=== PATIENT | female | born 1990 | race American Indian/Alaskan Native ===

== ENCOUNTER 2018-09-28 23:10 | Inpatient (IN) | payer OTHER ==
[2018-09-29] MEDS ORDERED: Acetaminophen 325 MG Tab PO PRN ×2 (00:05→11:14)
[2018-09-29] MEDS ORDERED: Misoprostol 400 MCG (4 X 100 MCG TAB) RECTAL PRN ×3 (00:05→11:28)
[2018-09-29] MEDS ORDERED: Lidocaine 1% 30 ML SDV INJECT PRN (00:05)
[2018-09-29] MEDS ORDERED: fentaNYL 100 MCG/2 ML SDV IVPUSH PRN (00:05)
[2018-09-29] MEDS ORDERED: Lactated Ringers 500 ML IV ONE (00:05)
[2018-09-29] MEDS ORDERED: Carboprost Tromethamine 250 MCG/1 ML Amp IM PRN ×3 (00:05→11:28)
[2018-09-29] MEDS ORDERED: Sodium Chloride 0.9% 10 ML Syringe FLUSH PRN ×3 (00:05→11:28)
[2018-09-29] MEDS ORDERED: Methylergonovine 0.2 MG/1 ML Amp IM PRN (00:05)
[2018-09-29] MEDS ORDERED: Tranexamic Acid 1,000 MG in Sodium Chloride 0.9% 100 ML IV PRN ×3 (00:05→11:28)
[2018-09-29] MEDS ORDERED: Oxytocin/Normal Saline 30 UNIT/500 ML BAG IV SCH (00:15)
[2018-09-29] MEDS: Lactated Ringers 1,000 ML IV SCH ×2 (02:53→09:54)
--- NOTE | 2018-09-29 04:18 | HP ---
CHIEF COMPLAINT: Labor. HISTORY OF PRESENT ILLNESS: A 28-year-old, 5, para 4-0-0-4, currently at 38 and 3/7th weeks' gestation based on last menstrual period and consistent with 20-week ultrasound. The patient presenting on late evening of 09/28/2018, reporting increased force and frequency of contractions this evening. No leakage of fluid or vaginal bleeding. movement has been good. No symptoms of preeclampsia and denies other acute concerns. The patient and her made it to the hospital early as she does have a history of precipitous deliveries. OBSTETRICAL HISTORY: 1. 02/2008, 40 weeks' gestation, vaginal delivery, female infant weighing 3402 kg. The patient was induced on her due date by Dr. Szymanski. Delivery was vaginal without complications. 2. 06/09/2010, at 39 and 2/7th weeks' gestation, female weighing 3487 g, precipitous delivery after intrathecal was given at 6 cm to 7 cm. The patient was delivered by Lia blunt for Dr. Szymanski. 3. 02/21/2012, 39 weeks 4 days' gestation, spontaneous vaginal delivery, female infant weighing 3147 g. Also delivered by Lia blunt again for Dr. Szymanski. 4. 02/06/2016, 38 weeks and 0 days gestation, spontaneous vaginal delivery, female weighing 3855 g, delivered by Dr. Weaver without complications. LABS: Blood type O positive. Antibody screen negative. Rubella immune. Syphilis serology is nonreactive. Urine culture was greater than 100,000 of E coli. Hepatitis B negative. HIV negative. Gonorrhea chlamydia negative. Thyroid test normal. Hepatitis C negative. Wet prep negative. One- hour glucose tolerance test of 153, 3-hour test was normal with a fasting of 82, 1 hour 131, 2 hours 90, and 3 hours of 93. Group B strep test is negative. Last hemoglobin in the office was 9.9 and she does have anemia of . PAST MEDICAL HISTORY: Abnormal Pap smear HSIL in 04/2010, which returned to normal without any treatment, boxer's fracture in 2004, chlamydia infection in June 2015, depression, history of chickenpox. She has also had some tattoos and ear piercings, history of nonrecurrent UTIs. PAST SURGICAL HISTORY: None. FAMILY HISTORY: Mother, living with thyroid disease. Father, living with diabetes. She has 1 sister and 5 brothers, 1 of whom was in a car accident because he was texting while driving. Maternal grandmother with lymph node cancer. Maternal grandfather , no known diseases. Paternal grandmother with diabetes. Paternal grandfather is . There is no family history of any defects, anesthesia problems, bleeding problems, multiple births, seizures, cystic fibrosis, or clotting disorders. SOCIAL HISTORY: The patient has never smoked. She is , living in [place] and working at the [employer]. 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 MEDICATIONS: vitamin 1 daily. Iron prescribed twice daily, but she is only taking it once daily because of constipation. Colace 100 mg twice daily for constipation. ALLERGIES: Augmentin causes rash with hives. REVIEW OF SYSTEMS: As listed above in the history of present illness. No difficulties with headaches, blurry vision, chest pain, shortness of breath, fever, chills, nausea, vomiting, or diarrhea. She does have some ongoing constipation, made worse by the iron. PHYSICAL EXAMINATION: VITAL SIGNS: Blood pressure 132/71, pulse of 83, respiratory rate of 18. HEENT: Grossly unremarkable. NECK: Supple without adenopathy. HEART: Regular without murmur. LUNGS: Clear to auscultation bilaterally. ABDOMEN: Soft and nontender. Appropriate fundal height. NST is category 1 with baseline heart rate of 120 beats per minute. Contractions initially every 4 minutes, currently every 2, cervix 3 cm, 75%. EXTREMITIES: No edema, erythema, or tenderness noted. LABORATORY DATA: Hemoglobin is 9.8, platelets are 391. ASSESSMENT: 1. A 38 and 3/7th weeks' intrauterine . 2. 5, para 4-0-0-4. 3. Blood type, O positive. Rubella immune. Group B strep negative. 4. History of precipitous deliveries. 5. History of depression. 6. Anemia of . PLAN: The patient will get settled into a delivery room. We will anticipate artificial rupture of membranes followed later by intrathecal when appropriate and patient usually dilates readily thereafter, so will be expecting a vaginal delivery. The patient understands at any time the course of treatment may change, pending clinical course, and any concerns that may arise for mom and/or baby. Her questions were answered. [facility] /[id number]
[2018-09-29] MEDS ORDERED: fentaNYL 100 MCG/2 ML SDV ONE ×2 (05:08→09:37)
[2018-09-29] MEDS ORDERED: EPINEPHrine 1 MG/ML SDV ONE ×2 (05:09→09:37)
--- NOTE | 2018-09-29 05:43 | PCM.PRNOTE ---
- Free Text/Narrative Note: Requested to provide analgesia to full term patient in severe pain. Upon entering the room, patient is sitting on edge of bed complaining of severe abdominal/pelvic pain and discomfort. Procedure was discussed with patient including adverse outcomes and expectations. Pt consented to analgesia, SAB/ IT. Pt placed into a proper sitting position. Landmarks for SAB/IT were identified and marked. Hands were washed and appropriate PPE was applied. Back was prepped with betadine x3. A sterile, transparent, fenestrated drape was applied. Excess betadine was removed. Using 3 mL of a 1% lidocaine solution , a skin wheel was placed at the L2/L3 interspace. A 24 ga (4 inch) Pencan spinal needle was inserted until positive for CSF. Negative for heme or paresthesias. Injected fentanyl 30 mcg, sufentanil 25 mcg, and 7.5 mg of a 0.75 % bupivacaine solution with an epi wash. Pt was placed left lateral position for approximately 20 minutes. There were zero complications or adverse outcomes. Will continue to monitor. Procedure Date & Time: 09-29-18 [id number]
[2018-09-29] MEDS: Ondansetron 4 MG/2 ML SDV IV PRN ×2 (07:09→09:42)
--- NOTE | 2018-09-29 10:06 | PCM.PRNOTE ---
- Free Text/Narrative Note: Requested to provide analgesia to full term patient in severe pain. Upon entering the room, patient is sitting on edge of bed complaining of severe abdominal/pelvic pain and discomfort. Procedure was discussed with patient including adverse outcomes and expectations. Pt consented to analgesia, SAB/ IT. Pt placed into a proper sitting position. Landmarks for SAB/IT were identified and marked. Hands were washed and appropriate PPE was applied. Back was prepped with betadine x3. A sterile, transparent, fenestrated drape was applied. Excess betadine was removed. Using 3 mL of a 1% lidocaine solution , a skin wheel was placed at the L2/L3 interspace. A 24 ga (4 inch) Pencan spinal needle was inserted until positive for CSF. Negative for heme or paresthesias. Injected fentanyl 25 mcg, sufentanil 15 mcg, and 7.5 mg of a 0.75 % bupivacaine solution with an epi wash. Pt was placed left lateral position for approximately 20 minutes. There were zero complications or adverse outcomes. Will continue to monitor. Procedure Date & Time: 09-29-18 [id number]
[2018-09-29] MEDS: Ferrous Sulfate 325 MG Tab PO SCH ×2 (10:23→18:15)
[2018-09-29] MEDS ORDERED: Zolpidem 5 MG Tab PO PRN ×2 (11:14→21:00)
[2018-09-29] MEDS ORDERED: Oxytocin 10 Units/1 ML SDV IM PRN ×2 (11:14→11:28)
[2018-09-29] MEDS ORDERED: Ibuprofen 800 MG Tab PO PRN (11:14)
[2018-09-29] MEDS ORDERED: Docusate Sodium 100 MG Cap PO PRN (11:14)
[2018-09-29] MEDS ORDERED: Benzocaine/Menthol 20%-0.5% Spray 56 GM Canister TOP PRN ×2 (11:14→11:28)
[2018-09-29] MEDS ORDERED: Simethicone 80 MG Tab.Chew PO PRN ×2 (11:14→11:28)
[2018-09-29] MEDS: Ibuprofen 800 MG Tab PO PRN (15:32)
[2018-09-29] MEDS: Docusate Sodium 100 MG Cap PO PRN ×2 (15:33→22:20)
[2018-09-29] MEDS: Acetaminophen 325 MG Tab PO PRN (18:15)
[2018-09-29 19:33] VITALS: BP 109/60
[2018-09-29] MEDS ORDERED: Acetaminophen/HYDROcodone 325-5 MG Tab PO PRN (21:52)
[2018-09-30] MEDS: Ibuprofen 800 MG Tab PO PRN (00:41)
--- NOTE | 2018-09-30 05:04 | DEL ---
DATE: 09/29/2018 PREPROCEDURE DIAGNOSES: 1. G5, P4-0-0-4. 2. Thirty-eight and 3/7th weeks gestation based on last menstrual period and 20 week ultrasound. 3. Blood type O positive, rubella immune, and group B strep negative. 4. History of precipitous deliveries. 5. History of depression. 6. Anemia of . POSTPROCEDURE DIAGNOSES: 1. G5, P5-0-0-5. 2. Thirty-eight and 4/7 weeks gestation based on last menstrual period and 20 week ultrasound. 3. Blood type O positive, rubella immune, and group B strep negative. 4. History of precipitous deliveries. 5. History of depression. 6. Anemia of . 7. Delivery of a viable male infant via spontaneous vaginal delivery, scores 8 and 9. BRIEF HISTORY: Nelida is a 28-year-old female with the above listed diagnoses who presented to Labor and Delivery with increased force and frequency of contractions. The patient's membranes were ruptured. She received an intrathecal a little after 5 a.m. this morning. She was progressing nicely just not as quickly as her previous deliveries. She received a 2nd intrathecal at about 9:50 this morning. At that time, she was 7+. She was complete by 11 a.m. this morning. The patient pushed the baby out in 2-1/2 pushes. PROCEDURE IN DETAIL: The patient delivered a viable male infant in the OA position over intact perineum. The baby's nose and mouth were bulb suctioned and baby was dried, stimulated, and placed on mother's abdomen. Three-vessel umbilical cord was doubly clamped and cut after a delay and placenta then delivered by gentle cord traction and concomitant uterine massage, inspected and intact. The labia and vagina inspected. No lacerations. COMPLICATIONS: None. FINDINGS: Viable male , scores of 8 and 9. Weight: 3340 gm (7lbs 6 oz). ESTIMATED BLOOD LOSS: 100 mL. DISPOSITION: Mother and baby to stay in the delivery room at this time. The patient was seen by myself and Dr. Weaver. Assessment and plan are under advisement of Dr. Weaver. Michael Jacobs [facility] /[id number] Procedure performed under my direct supervision by Michael Jacobs, MS3. Agree with note as she has scribed on my behalf. -bath house attendant 10/04/18 [id number] ROGELIOD
[2018-09-30] MEDS: Acetaminophen 325 MG Tab PO PRN (07:10)
[2018-09-30] MEDS: Docusate Sodium 100 MG Cap PO PRN (08:38)
[2018-09-30] MEDS: Ferrous Sulfate 325 MG Tab PO SCH (08:39)
[2018-09-30] MEDS ORDERED: Prenatal Multivitamin with Calcium/Folic Acid/Iron Tab PO SCH ×2 (09:00)
[2018-09-30] MEDS ORDERED: fentaNYL 100 MCG/2 ML SDV ITHECAL ONE ×2 (12:54)
[2018-09-30] MEDS ORDERED: EPINEPHrine 1 MG/ML SDV ONE (12:54)
--- NOTE | 2018-09-30 15:31 | DISCH ---
ADMITTING DIAGNOSES: 1. 38-3/7 weeks' intrauterine . 2. 5, para 4-0-0-4. 3. Blood type O-positive, rubella immune, and group B streptococcus negative. 4. History of precipitous deliveries. 5. History of depression. 6. Anemia of . DISCHARGE DIAGNOSES: 1. G5, P5-0-0-5. 2. 38-4/7 weeks' gestation based on last menstrual period and 20-week ultrasound. 3. Blood type O-positive, rubella immune, and group B streptococcus negative. 4. History of precipitous deliveries. 5. History of depression. 6. Anemia of . 7. Delivery of viable male infant via spontaneous vaginal deliveries, Apgars 8 and 9. BRIEF HISTORY: Nelida is a 28-year-old female with the above listed diagnoses, presented to labor and delivery with increased force and frequency of contractions. The patient's membranes were ruptured. She received an intrathecal a little after 5 a.m. given her history of precipitous deliveries. She was progressing nicely, just not as quickly as her previous deliveries. She received a second intrathecal about 5 hours after the first one. At that time, she was 7+. She was complete an hour later. The patient pushed the baby out in 2-1/2 pushes. HOSPITAL COURSE: Good. The patient's bleeding is very minimal. She is breast- feeding her baby well. She is ambulating, tolerating diet, and urinating well. She has some gas and burping but, no bowel movements. Delivery was uncomplicated. See the note for full details. Baby is a viable male weighing 3340 g (7 pounds 6 ounces), Apgars 8 and 9. Placenta was inspected and intact. DISCHARGE CONDITION: Good. DISCHARGE PHYSICAL EXAMINATION: Vital Signs: Temperature 98.2, pulse rate 73, blood pressure 109/60, and respiratory rate 16. Heart: Regular, without murmur. Lungs: Clear bilaterally. Abdomen: Soft, nontender. Fundus is firm and below the umbilicus. Extremities: No edema, erythema, or tenderness noted. LABORATORY DATA: Red blood cell on admission 4.35, today 3.87. Hemoglobin on admission 9.8, today 8.6. Hematocrit on admission 31.6, today 28.5. DISCHARGE MEDICATIONS: None prescribed. The patient can continue her vitamins with iron as well as Tylenol PRN. DISPOSITION: Home with family. FOLLOWUP: The patient is advised to have [address] Weaver. Baby's appointment will be next 10/04/18 at 10:45 am for well child and circumcision. The patient was seen by myself and Dr. Janee Harkins. Assessment and plan are under advisement of Dr. Janee Harkins. Michael Jacobs MS-III [facility] /[id number] Patient seen and examined. Agree with note as scribed on my behalf by Michael Jacobs, 3. -[facility] 10/04/18 [id number] MTDD
== END 2018-09-30 12:55 | disposition home or self-care (01) | DRG 807 ==
LOC: DL.OBCHECK 23:10 → DL.OB 09-29 00:08 → OBSVTOIN 09-29 10:52
PROVIDERS: ADMIT Family Medicine; ATTEND Family Medicine
PROC: 10E0XZZ Delivery of Products of Conception, External Approach (ICD-10-PCS; principal; 2018-09-29)
PROC: 00HU33Z Insertion of Infusion Device into Spinal Canal, Percutaneous Approach (ICD-10-PCS; 2018-09-29)
PROC: 3E0R3BZ Introduction of Anesthetic Agent into Spinal Canal, Percutaneous Approach (ICD-10-PCS; 2018-09-29)
DX: O99.02 Anemia complicating childbirth (principal); Z37.0 Single live birth; Z3A.38 38 weeks gestation of pregnancy; D64.9 Anemia, unspecified; Z87.440 Personal history of urinary (tract) infections; Z88.8 Allergy status to other drugs, medicaments and biological substances
CPT/HCPCS: 36415; 51701; 59409; 85027; A9270-GY; J0171; J2405; J2590; J3010; J7120

== ENCOUNTER 2018-10-05 12:21 | Emergency (ER) | payer OTHER ==
--- NOTE | 2018-10-05 12:48 | EDM.PDOC ---
ED HPI GENERAL MEDICAL PROBLEM - General Chief Complaint: Chest Pain Stated Complaint: CHEST/BACK PAIN Time Seen by Provider: 10/05/18 12:40 Source of Information: Reports: Patient History Limitations: Reports: No Limitations - History of Present Illness INITIAL COMMENTS - FREE TEXT/NARRATIVE: This 28 yo female patient reports to the ED with chest pain. The patient reports she started to have chest pain 2 days ago, but her pain has continued. The patient reports her current pain is to the lower chest from front to back. The patient also reports increased shortness of breath. The patient recently had a baby (09/29/18) and has been at home with the child since that time. The patient is breast feeding at this time. The patient reports she has been taking ibuprofen, but her symptoms have continued. The patient has not been seen for this. Onset Date: 10/03/18 Duration: Constant Location: Reports: Chest Quality: Reports: Dull, Pressure Severity: Moderate Improves with: Reports: None Worsens with: Reports: None Context: Reports: Other Associated Symptoms: Reports: Chest Pain, Shortness of Breath Treatments TEAR DOWN MAN: Reports: NSAIDS Lower Chest Pain Score (Numeric/FACES): 5 - Related Data Allergies Allergy/AdvReac Type Severity Reaction Status Date / Time amoxicillin trihydrate Allergy Other Verified 10/05/18 12:47 [From Augmentin] potassium clavulanate Allergy Other Verified 10/05/18 12:47 [From Augmentin] Home Meds: Home Meds . 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 History: Reports: , Other (See Below) Other FIXER BOARDING ROOM History: hx abnormal paps Musculoskeletal History: Reports: None Neurological History: Reports: None Psychiatric History: Reports: Other (See Below) Other Psychiatric History: hx depression Endocrine/Metabolic History: Reports: Other (See Below) Other Endocrine/Metabolic History: monitoring thyroid during Hematologic History: Reports: Anemia Immunologic History: Reports: None Oncologic (Cancer) History: Reports: None Dermatologic History: Reports: None - Infectious Disease History Infectious Disease History: Reports: None - Past Surgical History Head Surgeries/Procedures: Reports: None Social & Family History - Family History Family Medical History: Noncontributory - Caffeine Use Caffeine Use: Reports: None ED ROS GENERAL - Review of Systems Review Of Systems: ROS reveals no pertinent complaints other than HPI. ED EXAM, GENERAL - Physical Exam Exam: See Below Exam Limited By: No Limitations General Appearance: Alert, WD/WN, Moderate Distress Eye Exam: Bilateral Eye: EOMI, Normal Inspection, PERRL Ears: Normal External Exam, Normal Canal, Hearing Grossly Normal, Normal TMs Nose: Normal Inspection, Normal Mucosa, No Blood Throat/Mouth: Normal Inspection, Normal Lips, Normal Teeth, Normal Gums, Normal Oropharynx, Normal Voice, No Airway Compromise Head: Atraumatic, Normocephalic Neck: Normal Inspection, Supple, Non-Tender, Full Range of Motion Respiratory/Chest: Decreased Breath Sounds Cardiovascular: Normal Peripheral Pulses, Regular Rate, Rhythm, No Edema, No Gallop, No JVD, No Murmur, No Rub GI/Abdominal: Normal Bowel Sounds, Soft, Non-Tender, No Organomegaly, No Distention, No Abnormal Bruit, No Mass (Female) Exam: Deferred Rectal (Female) Exam: Deferred Back Exam: Normal Inspection, Full Range of Motion, NT Extremities: Pedal Edema (mild) Neurological: Alert, Oriented, CN II-XII Intact, Normal Cognition, Normal Gait, Normal Reflexes, No Motor/Sensory Deficits Psychiatric: Normal Affect, Normal Mood Skin Exam: Warm, Dry, Intact, Normal Color, No Rash Lymphatic: No Adenopathy Course - Vital Signs Last Recorded V/S: Last Vital Signs Temp 37.3 C 10/05/18 12:28 Pulse 70 10/05/18 12:28 Resp 20 10/05/18 12:28 BP 123/80 10/05/18 12:28 Pulse Ox 100 10/05/18 12:28 - Orders/Labs/Meds Orders: Active Orders 24 hr Category Date Time Status EKG Documentation Completion [RC] URGENT Care 10/05/18 12:35 Active Labs: Laboratory Tests 10/05/18 10/05/18 Range/Units 12:41 12:41 WBC 8.1 (5.0-10.0) 10^3/uL RBC 3.98 L (4.2-5.4) 10^6/uL Hgb 8.8 L (12.0-16.0) g/dL Hct 29.5 L (37.0-47.0) % MCV 74.1 L (80-100) fL MCH 22.1 L (27.0-34.0) pg MCHC 29.8 L (33.0-35.0) g/dL Plt Count 436 (150-450) 10^3/uL Neut % (Auto) 66.2 (42.2-75.2) % Lymph % (Auto) 23.9 (20.5-50.1) % [place] % (Auto) 7.3 (2-8) % Eos % (Auto) 2.1 (1.0-3.0) % Baso % (Auto) 0.5 (0.0-1.0) % Sodium 139 (135-145) mmol/L Potassium 3.8 (3.6-5.0) mmol/L Chloride 111 (101-111) mmol/L Carbon Dioxide 19.0 L (21.0-31.0) mmol/L Anion Gap 12.8 BUN 18 (7-18) mg/dL Creatinine 0.8 (0.6-1.3) mg/dL Est Cr Clr Drug Dosing TNP Estimated GFR (MDRD) > 60 BUN/Creatinine Ratio 22.50 Glucose 85 (74-105) mg/dL Calcium 8.1 L (8.4-10.2) mg/dl Total Bilirubin 0.2 (0.2-1.0) mg/dL AST 34 (10-42) IU/L ALT 49 (10-60) IU/L Alkaline Phosphatase 134 H (42-121) IU/L Troponin I < 0.02 (0.00-0.02) ng/ml Total Protein 6.2 L (6.7-8.2) g/dl Albumin 2.8 L (3.2-5.5) g/dl Globulin 3.4 Albumin/Globulin Ratio 0.82 Meds: Medications Discontinued Medications Generic Name Dose Route Start Last Admin Trade Name Freq PRN Reason Stop Dose Admin Iopamidol 100 ml 10/05/18 13:23 10/05/18 13:43 Isovue-370 (76%) IVPUSH 10/05/18 13:24 100 ml ONETIME ONE Administration Departure - Departure Time of Disposition: 14:23 Disposition: Home, Self-Care 01 Condition: Good Clinical Impression: Nonspecific chest pain, Muscle strain Instructions: Nonspecific Chest Pain, [id number] Forms: ED Department Discharge Care Plan Goals: The patient was advised of the examination, lab, EKG and CT results during the visit. The patient was encouraged to rest and relax. If the patient has any additional symptoms or concerns, the patient should either visit her primary care facility or return to the emergency department. - My Orders Last 24 Hours: My Active Orders 10/05/18 12:35 EKG Documentation Completion [RC] URGENT - Assessment/Plan Last 24 Hours: My Active Orders 10/05/18 12:35 EKG Documentation Completion [RC] URGENT
[2018-10-05 13:13] LABS: ANION GAP 12.8; CHLORIDE,CL 111 mmol/L (101-111); SODIUM,NA 139 mmol/L (135-145)
[2018-10-05] MEDS ORDERED: Iopamidol 755 Mg/ML 100 ML Bottle IVPUSH ONE (13:23)
[2018-10-05 13:29] VITALS: BP 123/80
== END 2018-10-05 14:42 | disposition home or self-care (01) ==
LOC: DL.ED 12:21
DX: R07.9 Chest pain, unspecified (principal); T14.8XXA Other injury of unspecified body region, initial encounter; Z88.1 Allergy status to other antibiotic agents; Z88.8 Allergy status to other drugs, medicaments and biological substances; X58.XXXA Exposure to other specified factors, initial encounter
CPT/HCPCS: 36415; 71260; 80053; 84484; 85025; 93005; 99285-25; Q9967

== ENCOUNTER 2018-10-08 00:47 | Emergency (ER) | payer OTHER ==
[2018-10-08] MEDS ORDERED: Iopamidol 612 MG/ML 100 ML Bottle IVPUSH ONE (01:23)
--- NOTE | 2018-10-08 01:25 | EDM.PDOC ---
ED HPI GENERAL MEDICAL PROBLEM - General Chief Complaint: Abdominal Pain Stated Complaint: ABD PAIN [id number] Time Seen by Provider: 10/08/18 01:24 Source of Information: Reports: Patient History Limitations: Reports: No Limitations - History of Present Illness INITIAL COMMENTS - FREE TEXT/NARRATIVE: onset RLQ pain tonight with nausea. PP 8 days vaginal. Lower Abdominal Pain Score (Numeric/FACES): 6 - Related Data Allergies Allergy/AdvReac Type Severity Reaction Status Date / Time amoxicillin trihydrate Allergy Other Verified 10/08/18 01:09 [From Augmentin] potassium clavulanate Allergy Other Verified 10/08/18 01:09 [From Augmentin] Home Meds: Home Meds Ibuprofen 400 mg PO Q6H 10/08/18 [History] Naproxen Sodium [Midol] 440 mg PO BID 10/08/18 [History] Past Medical History HEENT History: Reports: None Cardiovascular History: Reports: None Respiratory History: Reports: None Gastrointestinal History: Reports: None Genitourinary History: Reports: UTI, Recurrent 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: Reports: , Other (See Below) Other 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: hx abnormal paps Musculoskeletal History: Reports: None Neurological History: Reports: None Psychiatric History: Reports: Other (See Below) Other Psychiatric History: hx depression Endocrine/Metabolic History: Reports: Other (See Below) Other Endocrine/Metabolic History: monitoring thyroid during Hematologic History: Reports: Anemia Immunologic History: Reports: None Oncologic (Cancer) History: Reports: None Dermatologic History: Reports: None - Infectious Disease History Infectious Disease History: Reports: None - Past Surgical History Head Surgeries/Procedures: Reports: None Social & Family History - Family History Family Medical History: Noncontributory - Tobacco Use Smoking Status *Q: Never Smoker - Caffeine Use Caffeine Use: Reports: Tea - Recreational Drug Use Recreational Drug Use: No ED ROS GENERAL - Review of Systems Review Of Systems: ROS reveals no pertinent complaints other than HPI. ED EXAM, GI/ABD - Physical Exam Exam: See Below Exam Limited By: No Limitations General Appearance: Alert, WD/WN, Mild Distress, Other (discomfort) Ears: Hearing Grossly Normal Throat/Mouth: Normal Voice, No Airway Compromise Head: Atraumatic Neck: Non-Tender, Full Range of Motion Respiratory/Chest: No Respiratory Distress Cardiovascular: Regular Rate, Rhythm GI/Abdominal Exam: Guarding, Tender, Other (RLQ). No: Distended, Rigid, Rebound Neurological: Alert, Oriented, Normal Cognition, Normal Gait, No Motor/Sensory Deficits Psychiatric: Flat Affect Skin Exam: Warm, Dry, Normal Color Lymphatic: No Adenopathy Course - Vital Signs Last Recorded V/S: Last Vital Signs Temp 37.2 C 10/08/18 01:00 Pulse 96 10/08/18 01:00 Resp 18 10/08/18 01:00 BP 146/82 H 10/08/18 01:00 Pulse Ox 99 10/08/18 01:00 - Orders/Labs/Meds Orders: Active Orders 24 hr Category Date Time Status CULTURE URINE [RM] Stat Lab 10/08/18 01:30 Received Labs: Laboratory Tests 10/08/18 10/08/18 10/08/18 Range/Units 01: 01:20 01:30 WBC 13.4 H (5.0-10.0) 10^3/uL RBC 4.01 L (4.2-5.4) 10^6/uL Hgb 8.9 L (12.0-16.0) g/dL Hct 29.6 L (37.0-47.0) % MCV 73.8 L (80-100) fL MCH 22.2 L (27.0-34.0) pg MCHC 30.1 L (33.0-35.0) g/dL Plt Count 442 (150-450) 10^3/uL Neut % (Auto) 85.8 H (42.2-75.2) % Lymph % (Auto) 8.6 L (20.5-50.1) % [place] % (Auto) 4.6 (2-8) % Eos % (Auto) 0.9 L (1.0-3.0) % Baso % (Auto) 0.1 (0.0-1.0) % Sodium 138 (135-145) mmol/L Potassium 3.6 (3.6-5.0) mmol/L Chloride 110 (101-111) mmol/L Carbon Dioxide 18.0 L (21.0-31.0) mmol/L Anion Gap 13.6 BUN 10 (7-18) mg/dL Creatinine 0.8 (0.6-1.3) mg/dL Est Cr Clr Drug Dosing 88.79 mL/min Estimated GFR (MDRD) > 60 BUN/Creatinine Ratio 12.50 Glucose 108 H (74-105) mg/dL Calcium 8.1 L (8.4-10.2) mg/dl Total Bilirubin 0.4 (0.2-1.0) mg/dL AST 21 (10-42) IU/L ALT 29 (10-60) IU/L Alkaline Phosphatase 117 (42-121) IU/L Total Protein 6.3 L (6.7-8.2) g/dl Albumin 2.9 L (3.2-5.5) g/dl Globulin 3.4 Albumin/Globulin Ratio 0.85 Amylase 47 (28-100) U/L Lipase 24 (22-51) U/L Urine Color Yellow (YELLOW) Urine Appearance Slightly cloudy (CLEAR) Urine pH 7.5 (5.0-9.0) Ur Specific [place] 1.015 (1.005-1.030) Urine Protein Negative (NEGATIVE) Urine Glucose (UA) Negative (NEGATIVE) Urine Ketones Negative (NEGATIVE) Urine Occult Blood Small H (NEGATIVE) Urine Nitrite Negative (NEGATIVE) Urine Bilirubin Negative (NEGATIVE) Urine Urobilinogen 0.2 (0.2-1.0) mg/dL Ur Leukocyte Esterase Small H (NEGATIVE) Urine RBC 0-5 /HPF Urine WBC 5-10 H (0-5/HPF) /HPF Ur Epithelial Cells Few /HPF Urine Bacteria Moderate H (0-FEW/HPF) /HPF Meds: Medications Discontinued Medications Generic Name Dose Route Start Last Admin Trade Name Freq PRN Reason Stop Dose Admin Iopamidol 100 ml 10/08/18 01:23 10/08/18 01:31 Isovue-300 (61%) IVPUSH 10/08/18 01:24 100 ml ONETIME ONE Administration - Re-Assessments/Exams Free Text/Narrative Re-Assessment/Exam: 10/08/18 03:[address] Miner @ who kindly accepted pt Departure - Departure Time of Disposition: 03:25 Disposition: DC/Tfer to Acute Hospital 02 Condition: Good Clinical Impression: Appendicitis Qualifiers: Appendicitis type: acute appendicitis Acute appendicitis type: with localized peritonitis Appendicitis gangrene presence: without gangrene Appendicitis perforation presence: without perforation Appendicitis abscess presence: without abscess Qualified Code(s): K35.30 - Acute appendicitis with localized peritonitis, without perforation or gangrene - Discharge Information Forms: Interfacility Transfer EMTALA - My Orders Last 24 Hours: My Active Orders 10/08/18 01:30 CULTURE URINE [RM] Stat - Assessment/Plan Last 24 Hours: My Active Orders 10/08/18 01:30 CULTURE URINE [] Stat
[2018-10-08 01:46] LABS: ANION GAP 13.6; CHLORIDE,CL 110 mmol/L (101-111); SODIUM,NA 138 mmol/L (135-145)
[2018-10-08] MEDS ORDERED: fentaNYL 100 MCG/2 ML SDV IVPUSH ONE (03:28)
[2018-10-08 03:37] VITALS: BP 109/91
== END 2018-10-08 03:52 ==
LOC: DL.ED 00:47
DX: K35.30 Acute appendicitis with localized peritonitis, without perforation or gangrene (principal); Z88.1 Allergy status to other antibiotic agents; Z79.899 Other long term (current) drug therapy
CPT/HCPCS: 36415; 74177; 80053; 81001; 82150; 83690; 85025; 87086; 87088; 87186; 96374; 99285; J3010; Q9967

== ENCOUNTER 2021-05-16 23:00 | Inpatient (IN) | payer BC ==
[2021-05-16] MEDS ORDERED: Lactated Ringers 500 ML IV SCH ×2 (23:45)
[2021-05-16] MEDS ORDERED: Oxytocin/Normal Saline 30 UNIT/500 ML BAG IV SCH (23:45)
[2021-05-16] MEDS ORDERED: Ondansetron 4 MG/2 ML SDV IVPUSH PRN ×2 (23:49)
[2021-05-16] MEDS ORDERED: Promethazine 25 MG/ML SDV IM PRN (23:49)
[2021-05-16] MEDS ORDERED: Lactated Ringers 1,000 ML IV ONE (23:49)
[2021-05-16] MEDS ORDERED: ePHEDrine 50 MG/ML SDV IVPUSH PRN (23:49)
[2021-05-16] MEDS ORDERED: Tranexamic Acid 1,000 MG in Sodium Chloride 0.9% 100 ML IV PRN (23:49)
[2021-05-16] MEDS ORDERED: Naloxone 2 MG/2 ML Syringe IVPUSH PRN (23:49)
[2021-05-16] MEDS ORDERED: Carboprost Tromethamine 250 MCG/1 ML Amp IM PRN (23:49)
[2021-05-16] MEDS ORDERED: Misoprostol 400 MCG (4 X 100 MCG TAB) RECTAL PRN (23:49)
[2021-05-16] MEDS ORDERED: Sodium Chloride 0.9% 10 ML Syringe FLUSH PRN (23:49)
[2021-05-16] MEDS ORDERED: Lidocaine 1% 30 ML SDV INJECT PRN (23:49)
[2021-05-16] MEDS ORDERED: Methylergonovine 0.2 MG/1 ML Amp IM PRN (23:49)
[2021-05-17] MEDS: Lactated Ringers 1,000 ML IV SCH ×3 (00:56→03:36)
--- NOTE | 2021-05-17 01:29 | HP ---
CHIEF COMPLAINT: Leakage of fluid. HISTORY OF PRESENT ILLNESS: 31-year-old 6, para 5-0-0-5, currently at 40-0/7 weeks based on last menstrual period and 8-week ultrasound reports spontaneous rupture of clear fluid around 8:30 on the night of admission and this was accompanied by a small amount of blood causing a pink tinge, but no yumiko bleeding. No fevers, chills. She has mild vomit and mild nausea, but no vomiting. She had some dizziness earlier this evening, but that has since resolved. No headaches or blurry vision. No right upper quadrant pain. No chest pain or shortness of breath. No diarrhea or constipation. Overall, reports that she is feeling well. PAST MEDICAL HISTORY: Abnormal Pap smear in 04/2010 and since resolved without treatment, anemia with , boxer's fracture, chlamydia infection in 2016, depression, ear piercings, chickenpox, tattoos, and history of urinary tract infection. OBSTETRICAL HISTORY: 1. 02/2008, 40 weeks' gestation, spontaneous vaginal delivery. Baby weighed 3402 g. Female . Induced on her due date by Dr. Szymanski. Had an intrathecal for labor. Baby's name is Rebecca. 2. 06/09/2010, 39 weeks 2 days' gestation, vaginal delivery. Baby weighed 3487 g, female infant. Precipitous vaginal delivery after she received her intrathecal at 6 to 7 cm and had a quick nap. Delivered by the nurseLia, on behalf of Dr. Szymanski. She had an intrathecal for anesthesia. Baby's name is Alexandra. 3. 03/10/2012, 39 weeks 4 days' gestation. Baby weighed 3147 g, female , delivered vaginally again by nurse, Lia, on behalf of Dr. Szymanski. She had an intrathecal for anesthesia and the child's name is Rosana. 4. 10/07/2015, 38 weeks' gestation, vaginal delivery. Baby weighed 3855 g, female , delivered by Dr. Weaver with an intrathecal for anesthesia. Baby's name is Virgen. 5. 09/29/2018, 38 weeks 4 days' gestation. Baby weighed 3340 g. Male delivered by Dr. Weaver with intrathecal anesthesia. His name is Ja. LABS: Blood type is O positive. She is rubella immune. Group B strep negative. Syphilis nonreactive. Hepatitis B, HIV, gonorrhea, chlamydia, and hepatitis C all negative. 1-hour glucose tolerance test abnormal at 1:55. 3- hour test was normal. Quad screen was not performed. Wet prep was negative. SURGICAL HISTORY: None. FAMILY HISTORY: Mother is alive with thyroid disease. Father , diabetes, complicated by renal failure, heart attack at age 57 with his cause of , and he had a pacemaker. She has a half-sister alive and well. One brother alive and well. A half-brother in an accident because he was texting while driving. Three additional brothers are alive and well, so it should be 5 brothers total. Maternal grandmother with lymph node cancer. Maternal grandfather , but was thought to be healthy. Paternal grandmother diabetes, . Paternal grandfather had a history of alcohol abuse and is . SOCIAL HISTORY: The patient lives in [place] with her , Edis. They were in 12/2013. 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 Edis is still working at [employer] in maintenance. He also does some security work elsewhere. No pets. Has 6 children including his oldest child. MEDICATIONS: vitamin 1 daily. Not very good about taking her iron. ALLERGIES: Augmentin causes a rash. Mother told her that she had hives all over. REVIEW OF SYSTEMS: Pertinent positives and negatives as listed above under the history of present illness. No other pertinent findings. PHYSICAL EXAMINATION: Vital Signs: Initial blood pressure 141/96, came down to 132/84, pulse of 103, temperature 98.7, respiratory rate 18. HEENT: Grossly unremarkable. Neck: Supple without adenopathy. Heart: Regular without murmur. Lungs: Clear to auscultation bilaterally with good chest expansion. Abdomen: Gravid, soft, nontender. Baseline heart rate 145 beats per minute. Category 1 tracing. [place] shows contractions every 2-1/2 to 6 minutes. Baby is vertex. Cervix 4 cm, 75%, and -1 per nurse's exam. Extremities: No edema, erythema, or tenderness noted. Neurological: No focal findings. ASSESSMENT: 1. 40-0/7 weeks' intrauterine based on last menstrual period and 8- week ultrasound. 2. 6, para 5-0-0-5. 3. Grand multiparous. 4. Anemia of . 5. History of precipitous deliveries. 6. History of depression. 7. Urinary tract infection, treated in the second trimester. 8. Blood type O positive, rubella immune, and group B strep negative. 9. Spontaneous rupture at 8:30 this evening. PLAN: The patient will be admitted to Labor and Delivery, and if contractions do not become much more regular and stronger soon, we are going to augment with some Pitocin. She may have an intrathecal at any point that she feels she is ready for. Due to her history of precipitous labors, we would not want to withhold that and she tends to go faster after she has her intrathecal and contractions well established. We will be anticipating vaginal delivery. Of course, change in our course of action if any problems or concerns arise. [facility] /[id number] JINA
[2021-05-17] MEDS ORDERED: EPINEPHrine 1 MG/ML SDV ONE (03:23)
[2021-05-17] MEDS ORDERED: fentaNYL 100 MCG/2 ML SDV ONE (03:23)
--- NOTE | 2021-05-17 03:56 | PCM.PRNOTE ---
- Free Text/Narrative Note: Requested to provide analgesia to full term patient in severe pain. Upon entering the room, patient is sitting on edge of bed complaining of severe abdominal/pelvic pain and discomfort. Procedure was discussed with patient including adverse outcomes and expectations. Pt consented to analgesia, SAB/IT. Pt placed into a proper sitting position. Landmarks for SAB/IT were identified and marked. Hands were washed and appropriate PPE was applied. Back was prepped with betadine x3. A sterile, transparent, fenestrated drape was applied. Excess betadine was removed. Using 3 mL of a 1% lidocaine solution, a skin wheel was placed at the L2/L3 interspace. A 24 ga (4 inch) Penc[place] spinal needle was inserted until positive for CSF. Negative for heme or paresthesias. Injected fentanyl 30 mcg, sufentanil 25 mcg, and 7.5 mg of a 0.75% bupivacaine solution with an epi wash. Pt was placed left lateral tilt position for approximately 20 minutes. There were zero complications or adverse outcomes. Will continue to monitor. Procedure Date & Time: 05/17/21 [id number]
[2021-05-17] MEDS ORDERED: Oxytocin 10 Units/1 ML SDV IM PRN (05:45)
[2021-05-17] MEDS ORDERED: Simethicone 80 MG Tab.Chew PO PRN (05:45)
[2021-05-17] MEDS ORDERED: Benzocaine/Menthol 20%-0.5% Spray 78 GM Cannister TOP PRN (05:45)
--- NOTE | 2021-05-17 06:14 | DEL ---
DATE: 05/17/2021 PREPROCEDURE DIAGNOSES: 1. 40 and 1/7 weeks' intrauterine based on last menstrual period and 8-week ultrasound. 2. 6, para 5-0-0-5. 3. Grand multiparous. 4. Anemia of . 5. History of precipitous deliveries. 6. History of depression. 7. Urinary tract infection, treated 2nd trimester. 8. Blood type O positive, rubella immune, and group B strep negative. 9. Spontaneous rupture of membranes 9 hours prior to delivery. POSTPROCEDURE DIAGNOSES: 1. 40 and 1/7 weeks' intrauterine based on last menstrual period and 8-week ultrasound. 2. 6, now para 6-0-0-6. 3. Grand multiparous. 4. Anemia of . 5. History of precipitous deliveries. 6. History of depression. 7. Urinary tract infection, treated 2nd trimester. 8. Blood type O positive, rubella immune, and group B strep negative. 9. Spontaneous rupture of membranes 9 hours prior to delivery. BRIEF HISTORY: The patient is a 31-year-old with the above-listed medical diagnoses, who presented to the hospital with leakage of clear fluid and increase in contractions, but did require some augmentation with Pitocin to bring on true labor. She had an intrathecal for pain management just before 7 cm and went on to complete and delivered with only 2 sets of pushes. See admission history and physical for additional details. PROCEDURE: With the patient in dorsal lithotomy position, she delivered a viable female infant in the POWER position over intact perineum. There was a loose nuchal cord that was reduced bluntly along with delivery of the body. Baby was then dried, stimulated. Nose and mouth were bulb suctioned and baby placed on mother's abdomen. After delay, 3-vessel umbilical cord was doubly clamped and cut, and cord blood sample obtained. Placenta then delivered by gentle cord traction and concomitant uterine massage, inspected and intact. Labia and vagina were inspected. Attempted to get a good view of the cervix, I could only see 1 lip of it, but bleeding was well controlled, and there were no lacerations. COMPLICATIONS: None. ESTIMATED BLOOD LOSS: 100 mL. FINDINGS: Viable female infant. Initial set of weight and score pending. DISPOSITION: Mother and baby to stay in the room and initiate [id number]. [facility] /[id number]
[2021-05-17] MEDS: Ibuprofen 800 MG Tab PO PRN ×2 (06:59→17:32)
[2021-05-17] MEDS: Docusate Sodium 100 MG Cap PO PRN ×2 (12:44→21:30)
[2021-05-17] MEDS: Ferrous Sulfate 325 MG Tab PO SCH ×2 (12:44→21:30)
[2021-05-17] MEDS: Prenatal Multivitamin with Calcium/Folic Acid/Iron Tab PO SCH (14:59)
[2021-05-17] MEDS: Acetaminophen 325 MG Tab PO PRN (21:30)
[2021-05-18] MEDS: Ibuprofen 800 MG Tab PO PRN (03:43)
[2021-05-18] MEDS: Acetaminophen 325 MG Tab PO PRN (06:00)
[2021-05-18 09:08] VITALS: PULSE 74
[2021-05-18 09:09] VITALS: BP 124/74
[2021-05-18] MEDS: Prenatal Multivitamin with Calcium/Folic Acid/Iron Tab PO SCH (09:16)
[2021-05-18] MEDS: Ferrous Sulfate 325 MG Tab PO SCH (09:16)
[2021-05-18] MEDS: Docusate Sodium 100 MG Cap PO PRN (09:17)
[2021-05-18] MEDS ORDERED: EPINEPHrine 1 MG/ML SDV ONE (10:34)
[2021-05-18] MEDS ORDERED: fentaNYL 100 MCG/2 ML SDV ITHECAL ONE (10:34)
--- NOTE | 2021-05-19 07:11 | DISCH ---
ADMITTING DIAGNOSES: 1. 40 and 1/7 weeks intrauterine based on last menstrual period and 8- week ultrasound. 2. 6, para 5-0-0-5. 3. Grand multiparous. 4. Anemia of . 5. History of depression. 6. Blood type O-positive, rubella immune, group B strep negative. 7. History of precipitous deliveries. 8. Urinary tract infection in the second trimester. DISCHARGE DIAGNOSES: 1. 40 and 1/7 weeks intrauterine based on last menstrual period and 8- week ultrasound. 2. 6, para 6-0-0-5. 3. Grand multiparous. 4. Anemia of . 5. History of depression. 6. Blood type O-positive, rubella immune, group B strep negative. 7. History of precipitous deliveries. 8. Urinary tract infection in the second trimester. 9. Status post spontaneous vaginal delivery. BRIEF HISTORY: A 31-year-old female with the above-listed diagnoses presented to the hospital with spontaneous rupture of membranes at 8:30 p.m. on the night of admission. Contractions had started, but were slow and not picking up significantly at 2 hours, so Pitocin augmentation was initiated. From there, she went on to have an intrathecal for anesthetic and a forebag was ruptured when she was complete and we were ready to start pushing. Stage I was 9 hours, stage II was about 5 minutes, and stage III was about 10 minutes. The patient had an uncomplicated vaginal delivery and only pushed through 2 contractions and there were no lacerations and blood loss was only about 100 mL. HOSPITAL COURSE: Hospital course good. Since delivery, she has been doing well. No chest pain. No shortness of breath. Bleeding has been well controlled. Cramping is as expected for a mother. Milk is not yet in. Depression score was 15 on the screening test and she has a history of depression, but has not required medications in the past. present to discuss watching for signs and symptoms and to intervene should any problems arise, and they would like to be discharged home today as things are overall going well. CONDITION: Good. PHYSICAL EXAMINATION: Vital Signs: Temperature is 98.2, pulse 74, blood pressure 124/74, respiratory rate of 18, O2 saturations 99% on room air. Heart: Regular without murmur. Lungs: Clear to auscultation bilaterally. Abdomen: Soft, nontender. Positive bowel sounds. Fundus is firm and below the umbilicus. Extremities: Trace edema. No erythema or tenderness noted. LABORATORY DATA: Admission hemoglobin 9.7, discharge 9.0. Platelets admitting at 328, discharge of 292. MEDICATIONS: Ibuprofen 800 mg every 8 hours as needed for pain, Tylenol 650 mg every 6 hours as needed for pain, Colace 100 mg twice daily as needed for constipation, vitamin 1 daily, iron 325 mg twice daily. DISPOSITION: Home with family. FOLLOWUP: We will recheck her depression symptoms tomorrow and when she brings the baby in for first well-child check as well as at the baby's 2- week check and as needed. Otherwise, Nelida will be scheduled for a formal exam at 6 weeks. INSTRUCTIONS: Routine post vaginal delivery instructions for a mother were provided and all of her questions were answered. [facility] /[id number]
== END 2021-05-18 10:35 | disposition home or self-care (01) | DRG 560 ==
LOC: DL.OBCHECK 23:00 → DL.OB 23:49 → OBSVTOIN 05-17 05:26
PROVIDERS: ADMIT Family Medicine; ATTEND Family Medicine
PROC: 10E0XZZ Delivery of Products of Conception, External Approach (ICD-10-PCS; principal; 2021-05-17)
PROC: 3E0R3BZ Introduction of Anesthetic Agent into Spinal Canal, Percutaneous Approach (ICD-10-PCS; 2021-05-17)
PROC: 00HU33Z Insertion of Infusion Device into Spinal Canal, Percutaneous Approach (ICD-10-PCS; 2021-05-17)
DX: O99.02 Anemia complicating childbirth (principal); Z37.0 Single live birth; Z3A.40 40 weeks gestation of pregnancy; D64.9 Anemia, unspecified; Z20.822 Contact with and (suspected) exposure to COVID-19; Z28.82 Immunization not carried out because of caregiver refusal
CPT/HCPCS: 01967; 36415; 59409; 85027; A9270-GY; J2405; J2590; J7120; U0002